=== PATIENT | female | born 1995 | race American Indian/Alaskan Native ===

== ENCOUNTER 2016-09-21 06:36 | Emergency (ER) | payer OTHER ==
--- NOTE | 2016-09-21 08:23 | Emergency Department Report ---
HPI - General Chief Complaint: Headache Time Seen by Provider: 09/21/16 07:57 - HPI HPI: 21-year-old female presents today with headache since yesterday. Denies injury or trauma. Patient is positive for sudden onset and describes her pain as a generalized headache. Describes her pain as a 10 out of 10 constant, stabbing pain. Denies history of headaches. Tried baclofen without relief. Denies numbness, weakness, paresthesias. Denies fever, chills, nausea, vomiting, photophobia, cough and cold symptoms, chest pain, shortness of breath, abdominal pain. ED Past Medical Hx - Past Medical History Hx Asthma: Yes Additional medical history: hx. MS - Social History Smoking Status: Never Smoker Substance Use Type: Alcohol - Medications Home Medications: Home Medications Medication Instructions Recorded Confirmed Last Taken Type Amoxicillin/K Clav Tab [Augmentin 1 tab PO BID #14 tablet 10/12/13 Unknown Rx 875MG] Beta Seron IM 10/12/13 10/12/13 10/11/13 History Ibuprofen [Motrin 800 MG tab] 800 mg PO Q8HR PRN #30 tablet 08/19/16 Unknown Rx Butalbit/Acetamin/Caff/Codeine 1 cap PO Q6HR PRN #20 cap 09/21/16 Unknown Rx [Fioricet/Codeine 87-449-28-30] ED Review of Systems ROS: Stated complaint: NEGRON/MS Other details as noted in HPI Constitutional: denies: chills, fever, malaise Eyes: denies: eye pain ENT: denies: ear pain, throat pain, congestion Respiratory: denies: cough, shortness of breath, wheezing Cardiovascular: denies: chest pain, palpitations Endocrine: no symptoms reported Gastrointestinal: denies: abdominal pain, nausea, vomiting Skin: denies: rash Neurological: headache. denies: weakness, numbness, paresthesias Physical Exam - Physical Exam Vital Signs: Vital Signs 09/21/16 06:48 Temperature 98.5 F Pulse Rate 67 Respiratory 18 Rate Blood Pressure 115/64 O2 Sat by Pulse 100 Oximetry Physical Exam: GENERAL: The patient is well-developed and well-nourished. Patient is in NAD. HEAD: Normocephalic. Atraumatic. EYES: Extraocular motions are intact, PERRL. EARS: External auditory canals and tympanic membranes clear; hearing grossly intact. NOSE: Normal nasal mucosa with no nasal discharge. THROAT: No erythema, swelling or exudates. NECK: Supple, nontender, without lymphadenopathy. No meningitic signs are noted. CHEST/LUNGS: Clear to auscultation throughout. HEART/CARDIOVASCULAR: Regular rate and rhythm. ABDOMEN: Abdomen is soft, nontender. No guarding or rebound tenderness. EXTREMITIES: Peripheral pulses intact. Capillary refill less than 2 seconds. NEURO: Alert and oriented x 3. Normal gait. CN II-XII intact. Symmetrical strength and sensation. Negative Romberg and pronator drift. Cerebellar testing normal. GCS score of 15. ED Course Vital Signs 09/21/16 06:48 Temperature 98.5 F Pulse Rate 67 Respiratory 18 Rate Blood Pressure 115/64 O2 Sat by Pulse 100 Oximetry ED Medical Decision Making - Lab Data Vital Signs 09/21/16 09/21/16 06:48 10:59 Temperature 98.5 F 98.2 F Pulse Rate 67 55 L Respiratory 18 18 Rate Blood Pressure 115/64 Blood Pressure 117/67 [Left] O2 Sat by Pulse 100 100 Oximetry - Radiology Data Radiology results: report reviewed CT scan of the contrast: History: Sudden headache. Findings: Ventricles are normal in size and midline in location. Ill-defined focal area of low attenuation measuring 7 mm in diameter noted adjacent to anterior horn of right lateral ventricle at the frontal lobe. No evidence of hemorrhage. No extra-axial fluid collection. Normal brainstem and cerebellum. Normal visualized sinuses. Impression: Focal area of low attenuation adjacent to the anterior horn of the right lateral ventricle probably chronic lacunar infarct among other causes. MRI scan is recommended for further evaluation if clinically indicated. MRI scan of brain: History: Sudden onset of headache. Technique: Multiplanar multisequence images were obtained without contrast injection. Findings: No evidence of restricted diffusion. Ventricles are normal in size and midline in location. Bilateral periventricular areas of hyperintensity. Focal area of hypointensity on T1-weighted images with hyperintensity on T2-weighted images and gliosis on flair imaging in the frontal lobe bilaterally periventricular region. No evidence of hemorrhage. No extra-axial fluid collection. Normal brainstem and cerebellum. Normal sinuses and mastoid air cells. Impression: Chronic lacunar infarct right and left frontal lobe adjacent to the ventricles. Bilateral small vessel ischemic changes. - Medical Decision Making 21-year-old female presents today with headache since yesterday that had a sudden onset. Her neuro exam is unremarkable. A head CT was ordered. Focal area of low attenuation adjacent to the interior part of the right lateral ventricle probably chronic lacunar infarct, other causes, MRI scan was recommended for further evaluation. Her MRI reveals chronic lacunar infarct right and left frontal lobe adjacent to the ventricles and bilateral small vessel ischemic changes. Consulted with Dr. Ren. Patient was given morphine and Zofran and reported symptomatic relief post-meds. She has been provided with a referral for neurologist. Patient is in no acute distress at this time. She will be discharged home and is encouraged to follow up with a primary care provider and neurologist. He will be sent home on Fioricet/codeine and is encouraged to return to the emergency room for any worsening symptoms. Critical care attestation.: If time is entered above; I have spent that time in minutes in the direct care of this critically ill patient, excluding procedure time. ED Disposition Clinical Impression: Headache Qualifiers: Headache type: unspecified Headache chronicity pattern: acute headache Intractability: not intractable Qualified Code(s): R51 - Headache Disposition: DISCHARGED TO HOME OR SELFCARE Is pt being admited?: No Does the pt Need Aspirin: No Condition: Stable Instructions: Acute Headache (ED) Additional Instructions: Followed by neurologist. Return to the emergency department if symptoms worsen. Prescriptions: Butalbit/Acetamin/Caff/Codeine [Fioricet/Codeine [id number]] 1 cap PO Q6HR PRN #20 cap PRN Reason: Pain Referrals: PRIMARY MD ORLIN [Primary Care Provider] - 3-5 Days SALVADOR DEY MD [Staff Physician] - 3-5 Days Forms: Work/School Release Form(ED) Time of Disposition: 14:11
[2016-09-21 08:56] LABS: Bilirubin,Urine NEG (Negative); Blood,Urine NEG (Negative); Ketones,Urine NEG (Negative); Leukocyte Esterase,Urine NEG (Negative); Mucus,Urine 2+ /HPF; Nitrite,Urine NEG (Negative); RBC,Urine < 1.0 /HPF (0.0-6.0); Urobilinogen,Urine < 2.0 mg/dL (<2.0)
--- NOTE | 2016-09-21 09:20 | Cat Scan Report ---
CT scan of the contrast: History: Sudden headache. Findings: Ventricles are normal in size and midline in location. Ill-defined focal area of low attenuation measuring 7 mm in diameter noted adjacent to anterior horn of right lateral ventricle at the frontal lobe. No evidence of hemorrhage. No extra-axial fluid collection. Normal brainstem and cerebellum. Normal visualized sinuses. Impression: Focal area of low attenuation adjacent to the anterior horn of the right lateral ventricle probably chronic lacunar infarct among other causes. MRI scan is recommended for further evaluation if clinically indicated.
[2016-09-21] MEDS ORDERED: MORPHINE IV ONE ×2 (09:43→12:54)
[2016-09-21] MEDS ORDERED: NACL 0.9% 1000 ML 1,000 ML IV ONE (09:43)
[2016-09-21] MEDS ORDERED: ZOFRAN IV ONE (09:43)
--- NOTE | 2016-09-21 12:17 | Magnetic Resonance Report ---
MRI scan of brain: History: Sudden onset of headache. Technique: Multiplanar multisequence images were obtained without contrast injection. Findings: No evidence of restricted diffusion. Ventricles are normal in size and midline in location. Bilateral periventricular areas of hyperintensity. Focal area of hypointensity on T1-weighted images with hyperintensity on T2-weighted images and gliosis on flair imaging in the frontal lobe bilaterally periventricular region. No evidence of hemorrhage. No extra-axial fluid collection. Normal brainstem and cerebellum. Normal sinuses and mastoid air cells. Impression: Chronic lacunar infarct right and left frontal lobe adjacent to the ventricles. Bilateral small vessel ischemic changes.
[2016-09-21] MEDS ORDERED: FIORICET PO ONE (12:54)
[2016-09-21] MEDS: FIORICET PO ONE ×2 (13:28→13:37)
[2016-09-21 14:34] VITALS: BP 114/74
== END 2016-09-21 14:29 | disposition home or self-care (01) ==
LOC: ED 06:36
DX: R51 Headache (principal); J45.909 Unspecified asthma, uncomplicated
CPT/HCPCS: 70450; 70551; 81001; 81025; 96361; 96374; 96375; 96376; 99284; J2270; J2405; J7030